=== PATIENT | male | born 1965 | race Two or more races ===

== ENCOUNTER 2017-03-25 09:05 | Inpatient (IN) | payer OTHER ==
[2017-03-25 10:04] VITALS: BMI 21.3
--- NOTE | 2017-03-25 10:45 | HP ---
COWS - Scale Resting Pulse: 0= [place] 80 or Below Sweatin=Flushed/Facial Moisture Restless Observation: 1= Difficult to Sit Still Pupil Size: 0= Normal to Room Light Bone or Joint Aches: 2= Severe Diffuse Aches Runny Nose/ Eye Tearin= Runny Nose/Eyes GI Upset > 30mins: 2= Nausea/Diarrhea Tremor Observation: 2= Slight Tremor Visible Yawning Observation: 2= >3x During Session Anxiety or Irritability: 2=Irritable/Anxious Goose Flesh Skin: 3=Piloerection COWS Score: 18 Admission ROS [facility] Chief Complaint: I am here for detox. Allergies/Adverse Reactions: Allergies Allergy/AdvReac Type Severity Reaction Status Date / Time No Known Allergies Allergy Verified 03/25/17 09:49 History of Present Illness: Pt is a 51yr old male with a history of heroin and cocaine dependence seeking detox for treatment. Exam Limitations: No Limitations - Ebola screening Have you traveled outside of the country in the last 21 days: No (N) Have you had contact with anyone from an Ebola affected area: No Have you been sick,other than usual withdrawal symptoms: No Do you have a fever: No - Review of Systems Constitutional: Chills, Diaphoresis, Loss of Appetite, Night Sweats, Changes in sleep, Unintentional Wgt. Loss EENT: reports: Tearing, Nose Congestion Respiratory: reports: Cough Cardiac: reports: No Symptoms Reported GI: reports: Diarrhea, Poor Appetite, Poor Fluid Intake : reports: Dysuria Musculoskeletal: reports: Back Pain, Joint Pain, Muscle Pain Integumentary: reports: Bruising (on right leg), Flushing, Sweating, Other ( right thumb swelling able to move digit withsome restriction. pt states a gate at his job jammed his finger a few days ago. pt failed to go to the hospital for evaluation.) Neuro: reports: Tingling, Tremors Endocrine: reports: Excessive Sweating, Flushing, Intolerance to Cold, Intolerance to Heat Hematology: reports: No Symptoms Reported Psychiatric: reports: Mood/Affect Appropiate, Orientated x3, Agitated, Anxious Other Systems: Reviewed and Negative Patient History - Patient Medical History Hx Anemia: No Hx Asthma: Yes Hx Chronic Obstructive Pulmonary Disease (COPD): No Hx Cancer: No Hx Cardiac Disorders: No Hx Congestive Heart Failure: No Hx Hypertension: Yes Hx Hypercholesterolemia: No Hx Pacemaker: No HX Cerebrovascular Accident: No Hx Seizures: No Hx Dementia: No Hx Diabetes: No Hx Gastrointestinal Disorders: No Hx Liver Disease: No Hx Genitourinary Disorders: No Hx Sexually Transmitted Disorders: No Hx Renal Disease (ESRD): No Hx Thyroid Disease: No Hx Human Immunodeficiency Virus (HIV): No (2015- neg. ) Hx Hepatitis C: Yes Hx Depression: No Hx Suicide Attempt: No (denies) Hx Bipolar Disorder: No Hx Schizophrenia: No - Patient Surgical History Past Surgical History: Yes Hx Neurologic Surgery: No Hx Cataract Extraction: No Hx Cardiac Surgery: No Hx Lung Surgery: No Hx Breast Surgery: No Hx Breast Biopsy: No Hx Abdominal Surgery: No Hx Appendectomy: No Hx Cholecystectomy: No Hx Genitourinary Surgery: No Hx Orthopedic Surgery: No (rt shoulder arthroscopy) Anesthesia Reaction: No - PPD History Previous Implant?: Yes Documented Results: Negative w/proof Implanted On Prior [facility] Admission?: Yes PPD to be Administered?: No - Reproductive History Patient is a Female of Child Bearing Age (11 -55 yrs old): No - Smoking Cessation Smoking history: Current every day smoker Have you smoked in the past 12 months: Yes Aproximately how many cigarettes per day: 20 Cigars Per Day: 0 Hx Chewing Tobacco Use: No Initiated information on smoking cessation: Yes 'Breaking Loose' booklet given: 03/25/17 - Substance & Tx. History Hx Alcohol Use: No Hx Substance Use: Yes Substance Use Type: Cocaine, Heroin Hx Substance Use Treatment: Yes [facility]) - Substances Abused Heroin Route: Injection Frequency: Daily Amount used: 10 bags Age of first use: 16 Date of Last Use: 03/24/17 Cocaine Route: Injection Frequency: Daily Amount used: $100-150 Age of first use: 23 Date of Last Use: 03/24/17 Family Disease History - Family Disease History Family Disease History: Other: Mother (HTN) Admission Physical Exam BHS - Vital Signs Vital Signs: Vital Signs - 24 hr 03/25/17 09:53 Temperature 96.5 F L Pulse Rate 56 L Respiratory 20 Rate Blood Pressure 112/71 - Physical General Appearance: Yes: Appropriately Dressed, Moderate Distress, Tremorous, Irritable, Sweating, Anxious HEENTM: Yes: Hearing grossly Normal, Normal Voice, Nasal Congestion, Rhinorrhea Respiratory: Yes: Lungs Clear, Normal Breath Sounds, No Respiratory Distress Neck: Yes: No masses,lesions,Nodules Breast: Yes: Within Normal Limits Cardiology: Yes: Regular Rhythm, Regular Rate, S1, S2 Abdominal: Yes: Normal Bowel Sounds, Non Tender, Soft Genitourinary: Yes: Within Normal Limits Back: Yes: Normal Inspection Musculoskeletal: Yes: full range of Motion Extremities: Yes: Normal Capillary Refill, Non-Tender, Tremors Neurological: Yes: Fully Oriented, Alert, Normal Response Integumentary: Yes: Normal Color, Diaphoresis, Track [place] Lymphatic: Yes: Within Normal Limits - Diagnostic (1) Cocaine dependence Current Visit: Yes Status: Acute Qualifiers: Substance use status: uncomplicated Qualified Code(s): F14.20 - Cocaine dependence, uncomplicated (2) Asthma Current Visit: Yes Status: Chronic Qualifiers: Asthma severity: mild Asthma persistence: unspecified (3) Hep C w/o coma, chronic Current Visit: Yes Status: Chronic (4) Nicotine dependence Current Visit: Yes Status: Chronic Qualifiers: Nicotine product type: cigarettes Substance use status: uncomplicated Qualified Code(s): F17.210 - Nicotine dependence, cigarettes, uncomplicated (5) Opioid dependence with withdrawal Current Visit: Yes Status: Chronic (6) Finger injury Current Visit: Yes Status: Acute Qualifiers: Encounter type: initial encounter Laterality: right Qualified Code(s): S69.91XA - Unspecified injury of right wrist, hand and finger(s), initial encounter Comment: thumb Cleared for Admission [facility] - Detox or Rehab [facility] Level of Care: Medically Managed Detox Regimen/Protocol: Methadone [facility] Breath Alcohol Content Breath Alcohol Content: 0 Urine Drug Screen - Results Drug Screen Negative: No Urine Drug Screen Results: KATARINA-Cocaine, OPI-Opiates, BZO-Benzodiazepines, MTD- Methadone
[2017-03-25] MEDS ORDERED: MAGNESIUM CITRATE 300 ML BOTTLE PO PRN (11:24)
[2017-03-25] MEDS ORDERED: MAGNESIUM HYDROX 2400MG/30ML ORAL SUSPENSION 30 ML CUP PO PRN (11:24)
[2017-03-25] MEDS ORDERED: P-EPHED 60MG/TRIPROLIDI 2.5MG TABLET PO PRN (11:24)
[2017-03-25] MEDS ORDERED: ACETAMINOPHEN 325 MG TABLET (FP) PO PRN (11:24)
[2017-03-25] MEDS ORDERED: MENTHOL/PHENOL 1 EACH UD MM PRN (11:24)
[2017-03-25] MEDS ORDERED: guaiFENesin/D-METHORPHAN HB 10 ML UNIT-DOSE CUPS PO PRN (11:24)
[2017-03-25] MEDS ORDERED: hydrOXYzine PAMOATE 50 MG CAPSULE (FP) PO PRN (11:24)
[2017-03-25] MEDS ORDERED: MAG HYDROX/AL HYDROX/SIMETH 30 ML UNIT-DOSE CUP PO PRN (11:24)
[2017-03-25] MEDS ORDERED: LOPERAMIDE HCL 2 MG CAPSULE PO PRN (11:24)
[2017-03-25] MEDS ORDERED: METHADONE HCL 10 MG TABLET (FOR DETOX USE ONLY) PO ONE ×2 (12:00→23:00)
[2017-03-25] MEDS: ALBUTEROL SO4 18 GM HFA INHALER IH SCH ×4 (13:04→23:39)
[2017-03-25] MEDS: IBUPROFEN 400 MG TABLET (FP) PO PRN (13:04)
[2017-03-25] MEDS: diazePAM 5 MG TABLET PO PRN ×2 (13:04→22:19)
--- NOTE | 2017-03-25 15:38 | CONSULT ---
[facility] Psychiatric Consult - Data Date of interview: 03/24/17 Admission source: [facility] Identifying data: Pt. is 51 year old male, single and unemployed. This is one of patient's several admissions to [facility]. Pt. admitted to for detox from heroin and cocaine dependence. Substance Abuse History: Heroin- Begun using heroin in august of 2016. Usage: 9-10 bags daily. Cocaine- Begun using cocaine in august of 2016. Usage- 5 bags daily. Cigarette- Started smoking at 16 years of age. Usage: 1 pack per day. Medical History: Asthma, Hep C, HIV Psychiatric History: Denies. Pt. denies history of suicide attempt. Physical/Sexual Abuse/Trauma History: Denies. Mental Status Exam - Mental Status Exam Alert and Oriented to: Time, Place, Person Cognitive Function: Fair Patient Appearance: Well Groomed Mood: Withdrawn Affect: Flat Patient Behavior: Sedated, Fatigued Speech Pattern: Clear Voice Loudness: Moderately Soft/Quiet Thought Process: Intact Thought Disorder: Present Hallucinations: Denies Suicidal Ideation: Denies Homicidal Ideation: Denies Insight/Judgement: Fair Sleep: Well (Pt. reports good sleep.) Appetite: Fair Muscle strength/Tone: Normal Gait/Station: Normal Psychiatric Findings - Problem List ([place] 1, 2,3) (1) Cocaine dependence Current Visit: Yes Status: Acute Qualifiers: Substance use status: uncomplicated Qualified Code(s): F14.20 - Cocaine dependence, uncomplicated (2) Opioid dependence with withdrawal Current Visit: Yes Status: Chronic (3) Opioid dependence Current Visit: Yes Status: Acute (4) Nicotine dependence Current Visit: Yes Status: Chronic Qualifiers: Nicotine product type: cigarettes Substance use status: uncomplicated Qualified Code(s): F17.210 - Nicotine dependence, cigarettes, uncomplicated (5) Uncomplicated opioid dependence Current Visit: No Status: Acute (6) Substance induced mood disorder Current Visit: Yes Status: Suspected - Initial Treatment Plan Initial Treatment Plan: Psychoeducation provided. Detoxification in progress. No need for psychotrophic medications at this time. Will continue to monitor.
[2017-03-25] MEDS ORDERED: ONDANSETRON *ODT* 4 MG TABLET SL ONE (19:00)
[2017-03-25] MEDS: THIAMINE HCL 100 MG TABLET (FP) PO SCH (22:19)
[2017-03-25 23:43] LABS: URINE APPEARANCE SLCLOUDY; URINE BILIRUBIN NEGATIVE (NEGATIVE); URINE BLOOD NEGATIVE (NEGATIVE); URINE COLOR DKYELLOW; URINE GLUCOSE (UA) NEGATIVE (NEGATIVE); URINE KETONE NEGATIVE (NEGATIVE); URINE LEUK ESTERASE NEGATIVE (NEGATIVE); URINE NITRITE NEGATIVE (NEGATIVE); URINE PROTEIN NEGATIVE (NEGATIVE)
[2017-03-26] MEDS: ALBUTEROL SO4 18 GM HFA INHALER IH SCH ×6 (06:02→23:45)
[2017-03-26] MEDS: diazePAM 5 MG TABLET PO PRN ×2 (06:17→22:10)
[2017-03-26] MEDS ORDERED: TRIMETHOBENZAMIDE HCL 200MG/2ML INJ IM ONE (09:58)
[2017-03-26] MEDS ORDERED: METHADONE HCL 10 MG TABLET (FOR DETOX USE ONLY) PO ONE (10:00)
[2017-03-26 10:05] LABS: HEMATOCRIT 38.7 % (35.4-49); HEMOGLOBIN 12.7 GM/dL (11.7-16.9); MCH 29.7 pg (25.7-33.7); MCHC 32.8 g/dl (32.0-35.9); MEAN CELL VOLUME 90.5 fl (80-96); PLATELET COUNT 153 K/MM3 (134-434); RBC 4.28 M/mm3 (4.00-5.60); RDW 14.2 % (11.9-15.9)
[2017-03-26] MEDS: PRENATAL VITAMINS W/ FOLIC ACID TABLET (FP) PO SCH (10:10)
[2017-03-26] MEDS: cloNIDine HCL 0.1 MG TABLET PO SCH ×2 (10:13→22:10)
[2017-03-26] MEDS: NICOTINE 21 MG/24 HOURS TOPICAL PATCH TD SCH (10:13)
--- NOTE | 2017-03-26 10:20 | PN ---
BHS COWS - Scale Resting Pulse: 0= [place] 80 or Below Sweatin=Flushed/Facial Moisture Restless Observation: 1= Difficult to Sit Still Pupil Size: 0= Normal to Room Light Bone or Joint Aches: 2= Severe Diffuse Aches Runny Nose/ Eye Tearin= Runny Nose/Eyes GI Upset > 30mins: 2= Nausea/Diarrhea Tremor Observation of Outstretched Hands: 2= Slight Tremor Visible Yawning Observation: 2= >3x During Session Anxiety or Irritability: 2=Irritable/Anxious Goose Flesh Skin: 3=Piloerection COWS Score: 18 BHS Progress Note (SOAP) Subjective: nausea sweats nasal congestion irritable body aches shakes restless Objective: 03/26/17 10:13 Vital Signs Temperature 98.2 F 03/26/17 09:42 Pulse Rate 78 03/26/17 09:42 Respiratory Rate 18 03/26/17 09:42 Blood Pressure 132/85 03/26/17 09:42 O2 Sat by Pulse Oximetry (%) Laboratory Tests 03/25/17 03/25/17 03/26/17 11:00 21:35 06:00 WBC 6.0 RBC 4.28 Hgb 12.7 Hct 38.7 MCV 90.5 MCH 29.7 MCHC 32.8 RDW 14.2 Plt Count 153 MPV 10.0 Urine Color Dkyellow Urine Appearance Slcloudy Urine pH 5.0 Ur Specific [place] 1.028 Urine Protein Negative Urine Glucose (UA) Negative Urine Ketones Negative Urine Blood Negative Urine Nitrite Negative Urine Bilirubin Negative Urine Urobilinogen 2.0 HIV 1&2 Antibody Screen Negative HIV P24 Antigen Negative rest of labs pending aaox3 ambulating no acute distress Assessment: 03/26/17 10:14 withdrawal sx Plan: continue detox increase fluids tigan IM x one clonidine 0.1mg bid
[2017-03-26 10:23] LABS: CHLORIDE 106 mmol/L (98-107); POTASSIUM 3.6 mmol/L (3.5-5.1); SODIUM 142 mmol/L (136-145)
[2017-03-26 10:29] LABS: ALBUMIN 3.3 g/dl (3.4-5.0); ALK PHOS 96 U/L (45-117); ANION GAP 6 (8-16); BILIRUBIN,TOTAL 0.5 mg/dL (0.2-1.0); BLOOD UREA NITROGEN 22 mg/dL (7-18); CALCIUM 8.4 mg/dL (8.5-10.1); CO2 30 mmol/L (21-32); CREATININE 1.3 mg/dL (0.7-1.3); GLUCOSE,RANDOM 75 mg/dL (74-106); SGOT/AST 35 U/L (15-37); SGPT/ALT 44 U/L (12-78); TOT PROT 7.1 g/dl (6.4-8.2)
--- NOTE | 2017-03-26 11:45 | EKG ---
Test Reason : Blood Pressure : / mmHG Vent. Rate : 054 BPM Atrial Rate : 054 BPM P-R Int : 128 ms QRS Dur : 108 ms QT Int : 442 ms P-R-T Axes : 079 062 042 degrees QTc Int : 419 ms SINUS BRADYCARDIA OTHERWISE NORMAL ECG NO PREVIOUS ECGS AVAILABLE Confirmed by GELY BENAVIDES, LENNIE ([id number]) on 03/26/2017 11:44:42 AM Referred By: ROB MORAN Confirmed By:LENNIE HONG MD
[2017-03-26] MEDS ORDERED: FLU VACCINE QUAD 60 MCG/0.5 ML (MDV 17-18) IM ONE (12:00)
[2017-03-26 13:03] LABS: RPR REACTIVE 1:2 (NONREACTIVE)
[2017-03-26 13:05] LABS: TREPONEMA ANTIBODY PREVIOUSLY REACTIVE (NONREACTIVE)
[2017-03-26] MEDS: THIAMINE HCL 100 MG TABLET (FP) PO SCH (22:10)
[2017-03-27] MEDS: diazePAM 5 MG TABLET PO PRN ×2 (02:30→19:16)
[2017-03-27] MEDS: ALBUTEROL SO4 18 GM HFA INHALER IH SCH ×4 (07:12→22:07)
[2017-03-27] MEDS ORDERED: METHADONE HCL 5 MG TABLET (FOR DETOX USE ONLY) PO ONE (10:00)
[2017-03-27] MEDS: PRENATAL VITAMINS W/ FOLIC ACID TABLET (FP) PO SCH (10:11)
[2017-03-27] MEDS: cloNIDine HCL 0.1 MG TABLET PO SCH ×2 (10:11→22:07)
[2017-03-27] MEDS: NICOTINE 21 MG/24 HOURS TOPICAL PATCH TD SCH (10:11)
--- NOTE | 2017-03-27 10:15 | PN ---
BHS COWS - Scale Resting Pulse: 0= [place] 80 or Below Sweatin=Flushed/Facial Moisture Restless Observation: 1= Difficult to Sit Still Pupil Size: 0= Normal to Room Light Bone or Joint Aches: 2= Severe Diffuse Aches Runny Nose/ Eye Tearin= Runny Nose/Eyes GI Upset > 30mins: 1= Stomach Cramp Tremor Observation of Outstretched Hands: 2= Slight Tremor Visible Yawning Observation: 2= >3x During Session Anxiety or Irritability: 2=Irritable/Anxious Goose Flesh Skin: 0=Smooth Skin COWS Score: 14 S Progress Note (SOAP) Subjective: insomnia sweats chills body aches interrupted sleep irritable agitation Objective: 03/27/17 10:16 Vital Signs Temperature 97.3 F L 03/27/17 06:00 Pulse Rate 57 L 03/27/17 06:00 Respiratory Rate 18 03/27/17 06:00 Blood Pressure 122/74 03/27/17 06:00 O2 Sat by Pulse Oximetry (%) Laboratory Tests 03/25/17 03/25/17 03/26/17 11:00 21:35 06:00 WBC 6.0 RBC 4.28 Hgb 12.7 Hct 38.7 MCV 90.5 MCH 29.7 MCHC 32.8 RDW 14.2 Plt Count 153 MPV 10.0 Sodium Potassium Chloride Carbon Dioxide Anion Gap BUN Creatinine Creat Clearance w eGFR Random Glucose Calcium Total Bilirubin AST ALT Alkaline Phosphatase Total Protein Albumin Urine Color Dkyellow Urine Appearance Slcloudy Urine pH 5.0 Ur Specific [place] 1.028 Urine Protein Negative Urine Glucose (UA) Negative Urine Ketones Negative Urine Blood Negative Urine Nitrite Negative Urine Bilirubin Negative Urine Urobilinogen 2.0 Ur Leukocyte Esterase Negative RPR Titer T.pallidum Ab (A) HIV 1&2 Antibody Screen Negative HIV P24 Antigen Negative 03/26/17 03/26/17 06:00 06:00 WBC RBC Hgb Hct MCV MCH MCHC RDW Plt Count MPV Sodium 142 Potassium 3.6 Chloride 106 Carbon Dioxide 30 Anion Gap 6 L BUN 22 H D Creatinine 1.3 D Creat Clearance w eGFR 58.67 Random Glucose 75 Calcium 8.4 L Total Bilirubin 0.5 D AST 35 ALT 44 Alkaline Phosphatase 96 D Total Protein 7.1 Albumin 3.3 L Urine Color Urine Appearance Urine pH Ur Specific [place] Urine Protein Urine Glucose (UA) Urine Ketones Urine Blood Urine Nitrite Urine Bilirubin Urine Urobilinogen Ur Leukocyte Esterase RPR Titer Reactive 1:2 H T.pallidum Ab (A) Previously reactive HIV 1&2 Antibody Screen HIV P24 Antigen aaox3 ambulating no acute distress Assessment: 03/27/17 10:17 withdrawal sx Plan: continue detox increase fluids psych ordered for insomnia
[2017-03-27] MEDS ORDERED: ONDANSETRON 8 MG TABLET (FP) PO PRN (21:28)
[2017-03-27] MEDS ORDERED: ONDANSETRON *ODT* 4 MG TABLET SL PRN (22:04)
[2017-03-27] MEDS: THIAMINE HCL 100 MG TABLET (FP) PO SCH (22:07)
[2017-03-27] MEDS: NICOTINE POLACRILEX 4 MG GUM BUC PRN (22:07)
[2017-03-28] MEDS: ALBUTEROL SO4 18 GM HFA INHALER IH SCH ×4 (04:22→12:48)
[2017-03-28] MEDS ORDERED: METHADONE HCL 5 MG TABLET (FOR DETOX USE ONLY) PO ONE (10:00)
--- NOTE | 2017-03-28 10:26 | PN ---
BHS Progress Note (SOAP) Subjective: Sweating,interrupted sleep,restless Objective: 03/28/17 10:25 Vital Signs - 8 hr 03/28/17 03/28/17 03:30 07:15 Temperature 98.4 F Pulse Rate 54 L Respiratory 18 16 Rate Blood Pressure 124/72 Laboratory Tests 03/25/17 03/25/17 03/26/17 11:00 21:35 06:00 WBC 6.0 RBC 4.28 Hgb 12.7 Hct 38.7 MCV 90.5 MCH 29.7 MCHC 32.8 RDW 14.2 Plt Count 153 MPV 10.0 Sodium Potassium Chloride Carbon Dioxide Anion Gap BUN Creatinine Creat Clearance w eGFR Random Glucose Calcium Total Bilirubin AST ALT Alkaline Phosphatase Total Protein Albumin Urine Color Dkyellow Urine Appearance Slcloudy Urine pH 5.0 Ur Specific [place] 1.028 Urine Protein Negative Urine Glucose (UA) Negative Urine Ketones Negative Urine Blood Negative Urine Nitrite Negative Urine Bilirubin Negative Urine Urobilinogen 2.0 Ur Leukocyte Esterase Negative RPR Titer T.pallidum Ab (MHA) HIV 1&2 Antibody Screen Negative HIV P24 Antigen Negative 03/26/17 03/26/17 06:00 06:00 WBC RBC Hgb Hct MCV MCH MCHC RDW Plt Count MPV Sodium 142 Potassium 3.6 Chloride 106 Carbon Dioxide 30 Anion Gap 6 L BUN 22 H D Creatinine 1.3 D Creat Clearance w eGFR 58.67 Random Glucose 75 Calcium 8.4 L Total Bilirubin 0.5 D AST 35 ALT 44 Alkaline Phosphatase 96 D Total Protein 7.1 Albumin 3.3 L Urine Color Urine Appearance Urine pH Ur Specific [place] Urine Protein Urine Glucose (UA) Urine Ketones Urine Blood Urine Nitrite Urine Bilirubin Urine Urobilinogen Ur Leukocyte Esterase RPR Titer Reactive 1:2 H T.pallidum Ab (MHA) Previously reactive HIV 1&2 Antibody Screen HIV P24 Antigen labs noted Assessment: 03/28/17 10:26 Withdrawal sx. Plan: Continue detox
[2017-03-28 10:31] VITALS: BP 128/77; PULSE 73; TEMP 97.9
[2017-03-28] MEDS: cloNIDine HCL 0.1 MG TABLET PO SCH (11:00)
[2017-03-28] MEDS: diazePAM 5 MG TABLET PO PRN (11:00)
[2017-03-28] MEDS: PRENATAL VITAMINS W/ FOLIC ACID TABLET (FP) PO SCH (11:00)
[2017-03-28] MEDS: NICOTINE POLACRILEX 4 MG GUM BUC PRN (11:02)
[2017-03-28] MEDS: NICOTINE 21 MG/24 HOURS TOPICAL PATCH TD SCH (11:03)
[2017-03-28] MEDS: IBUPROFEN 400 MG TABLET (FP) PO PRN (11:50)
--- NOTE | 2017-03-28 13:55 | DS ---
[facility] Detox Discharge Summary Admission Date: 03/25/17 Discharge Date: 03/28/17 - History Present History: Cocaine Dependence, Opioid Dependence Pertinent Past History: Asthma Hep C - Physical Exam Results Vital Signs: Vital Signs Temperature 97.9 F 03/28/17 10:00 Pulse Rate 73 03/28/17 10:00 Respiratory Rate 20 03/28/17 10:00 Blood Pressure 128/77 03/28/17 10:00 O2 Sat by Pulse Oximetry (%) Pertinent Admission Physical Exam Findings: Withdrawal sx. Laboratory Tests 03/25/17 03/25/17 03/26/17 11:00 21:35 06:00 WBC 6.0 RBC 4.28 Hgb 12.7 Hct 38.7 MCV 90.5 MCH 29.7 MCHC 32.8 RDW 14.2 Plt Count 153 MPV 10.0 Sodium Potassium Chloride Carbon Dioxide Anion Gap BUN Creatinine Creat Clearance w eGFR Random Glucose Calcium Total Bilirubin AST ALT Alkaline Phosphatase Total Protein Albumin Urine Color Dkyellow Urine Appearance Slcloudy Urine pH 5.0 Ur Specific [place] 1.028 Urine Protein Negative Urine Glucose (UA) Negative Urine Ketones Negative Urine Blood Negative Urine Nitrite Negative Urine Bilirubin Negative Urine Urobilinogen 2.0 Ur Leukocyte Esterase Negative RPR Titer T.pallidum Ab (MHA) HIV 1&2 Antibody Screen Negative HIV P24 Antigen Negative 03/26/17 03/26/17 06:00 06:00 WBC RBC Hgb Hct MCV MCH MCHC RDW Plt Count MPV Sodium 142 Potassium 3.6 Chloride 106 Carbon Dioxide 30 Anion Gap 6 L BUN 22 H D Creatinine 1.3 D Creat Clearance w eGFR 58.67 Random Glucose 75 Calcium 8.4 L Total Bilirubin 0.5 D AST 35 ALT 44 Alkaline Phosphatase 96 D Total Protein 7.1 Albumin 3.3 L Urine Color Urine Appearance Urine pH Ur Specific [place] Urine Protein Urine Glucose (UA) Urine Ketones Urine Blood Urine Nitrite Urine Bilirubin Urine Urobilinogen Ur Leukocyte Esterase RPR Titer Reactive 1:2 H T.pallidum Ab (MHA) Previously reactive HIV 1&2 Antibody Screen HIV P24 Antigen labs noted - Treatment Patient has Accepted a Rehab Referral to: [facility] - Medication Discharge Medications: Ambulatory Orders Albuterol Sulfate Inhaler - [Ventolin Hfa Inhaler -] 2 inh PO Q4H 03/25/17 - Diagnosis (1) Opioid dependence with withdrawal Status: Acute (2) Substance induced mood disorder Status: Suspected - AMA Did Patient Leave Against Medical Advice: Yes
[2017-03-29] MEDS ORDERED: METHADONE HCL 10 MG TABLET (FOR DETOX USE ONLY) PO ONE (10:00)
[2017-03-30] MEDS ORDERED: METHADONE HCL 5 MG TABLET (FOR DETOX USE ONLY) PO ONE (06:00)
== END 2017-03-28 13:15 | disposition left against medical advice (07) | DRG 770 ==
LOC: YASAS 09:05 → Y6N 11:53
PROVIDERS: ADMIT Internal Medicine; ATTEND Internal Medicine
PROC: HZ2ZZZZ Detoxification Services for Substance Abuse Treatment (ICD-10-PCS; principal; 2017-03-25)
DX: F11.23 Opioid dependence with withdrawal (principal); F14.20 Cocaine dependence, uncomplicated; F17.210 Nicotine dependence, cigarettes, uncomplicated; F19.24 Other psychoactive substance dependence with psychoactive substance-induced mood disorder; J45.909 Unspecified asthma, uncomplicated; B18.2 Chronic viral hepatitis C; S69.91XA Unspecified injury of right wrist, hand and finger(s), initial encounter; X58.XXXA Exposure to other specified factors, initial encounter; Y93.9 Activity, unspecified; Y99.8 Other external cause status
CPT/HCPCS: 36415; 73110-TC-RT; 73130-TC-RT; 80053; 81003; 85027; 86593; 86780; 87389; 90688; 93005; 93010; G0008